=== PATIENT | female | born 1970 | race Caucasian/White ===

== ENCOUNTER 2020-10-04 17:22 | Emergency (ER) | payer OTHER ==
[~2020-10-04] VITALS: Ht 167.6 cm; Wt 112.5 kg
[2020-10-04 18:13] LABS: BASOPHILS # (AUTO) 0.1 (0.0-0.1); BASOPHILS % 0.5 % (0.0-1.0); EOSINOPHILS # (AUTO) 0.2 (0.0-0.4); EOSINOPHILS % 1.5 % (0.0-6.0); HEMATOCRIT 41.7 % (34.2-44.1); HEMOGLOBIN 13.3 g/dL (12.0-16.0); LYMPHOCYTES # (AUTO) 2.6 (1.0-3.2); LYMPHOCYTES % 22.7 % (18.0-39.1); MEAN CORPUSCULAR HGB CONC 31.9 g/dL (31-35); MEAN CORPUSCULAR VOLUME 81.4 fL (81-99); MONOCYTES # (AUTO) 0.7 (0.2-0.8); MONOCYTES % 6.3 % (4.4-11.3); NEUTROPHILS # (AUTO) 7.9 (2.1-6.9); NEUTROPHILS % 68.3 % (38.7-80.0); PLATELET COUNT 430 x10e3/uL (140-360); RED BLOOD COUNT 5.12 x10e6/uL (3.6-5.1); RED CELL DISTRIBUTION WIDTH 13.9 % (11.7-14.4)
[2020-10-04 18:34] LABS: ALANINE AMINOTRANSFERASE 23 IU/L (0-55); ALBUMIN 3.9 g/dL (3.5-5.0); ALBUMIN/GLOBULIN RATIO 0.9 (0.8-2.0); ALKALINE PHOSPHATASE 91 IU/L (40-150); ANION GAP 15.4 mmol/L (8-16); BLOOD UREA NITROGEN 11 mg/dL (7-26); BUN/CREATININE RATIO 11 (6-25); CALCIUM 9.2 mg/dL (8.4-10.2); CARBON DIOXIDE 25 mmol/L (22-29); CHLORIDE 103 mmol/L (98-107); CREATINE KINASE 34 IU/L (29-168); CREATININE, SERUM 0.98 mg/dL (0.57-1.11); EST GLOMERULAR FILTRATION RATE 60 ML/MIN (60-); GLUCOSE 92 mg/dL (74-118); POTASSIUM 4.4 mmol/L (3.5-5.1); SODIUM 139 mmol/L (136-145)
--- NOTE | 2020-10-04 18:52 | Emergency Department Note ---
History of Present Illnes History of Present Illness Chief Complaint: General Medicine Complaints History of Present Illness This is a 49 year old female in from home with complaints of abnormally high blood pressure that started while she was at work today. 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 The patient reports that she was advised to go home and she decided to stay at work for a meeting. During the meeting the patient reports that she developed some discomfort in her left shoulder that moved down to her left flank area. Patient reports a history of "abnormal EKGs" but is unsure what makes them abnormal. Patient reports that she had a full cardiac workup in 2016 including stress test and echo and everything was good at that time. Patient denies chest pain at the [facility]. Patient reports a history of "low and high blood pressure" and reports that her "body had a hard time regulating her blood pressure". No acute distress noted. . Historian: Patient Arrival Mode: Car Onset (how long ago): hour(s) (4) Location: LEFT SHOUDLER Quality: DISCOMFORT Radiation: Reports non-radiation Severity: moderate Onset quality: sudden Duration (how long): hour(s) (LESS THAN 10 MINUTES) Progression: resolved Chronicity: new Relieving factors: none Exacerbating factors: none Associated symptoms: Reports other (STATES HAS HAD BLURRED VISION ALL DAY) Treatments prior to arrival: none Past Medical/Family History Physician Review I have reviewed the patient's past medical and family history. Any updates have been documented here. Past Medical History Recent Fever: No Clinical Suspicion of Infectio: No New/Unexplained Change in Ment: No Past Medical History: None Other Medical History: Covid 02/2020 Other Surgery: left knee ligament repair Social History Smoking Cessation: Never Smoker Alcohol Use: Occasional Any Illegal Drug Use: No Family History Family history of heart diseas: No Other Any Pre-Existing Lines (PICC,: No Review of Systems Review of Systems Constitutional: Reports no symptoms EENTM: Reports no symptoms Cardiovascular: Reports as per HPI Respiratory: Reports no symptoms Gastrointestinal: Reports no symptoms Genitourinary: Reports no symptoms Musculoskeletal: Reports no symptoms Integumentary: Reports no symptoms Neurological: Reports as per HPI Psychological: Reports no symptoms Endocrine: Reports no symptoms Hematological/Lymphatic: Reports no symptoms Physical Exam Related Data Allergies: Coded Allergies: cefuroxime (Verified Allergy, Intermediate, rash, 10/04/20) lisinopril (Verified Allergy, Intermediate, redness to skin and cough, 10/04/20) strawberry (Verified Allergy, Intermediate, swelling, 10/04/20) Triage Vital Signs Vital Signs Date Time Temp Pulse Resp B/P (MAP) Pulse Ox O2 Delivery O2 Flow Rate FiO2 10/04/20 17:35 97.0 90 18 156/100 100 Room Air Vital signs reviewed: Yes Physical Exam CONSTITUTIONAL Constitutional: Present well-developed, Present well-nourished; Absent distressed HENT HENT: Present normocephalic, Present atraumatic, Present oropharynx clear/rosalio st, Present nose normal HENT L/R: Present left ext ear normal, Present right ext ear normal EYES Eyes: Reports PERRL, Reports conjunctivae normal NECK Neck: Present ROM normal PULMONARY Pulmonary: Present effort normal, Present breath sounds normal CARDIOVASCULAR Cardiovascular: Present regular rhythm, Present heart sounds normal, Present capillary refill normal, Present normal rate GASTROINTESTINAL Abdominal: Present soft, Present nontender, Present bowel sounds normal GENITOURINARY Genitourinary: Present exam deferred SKIN Skin: Present warm, Present dry MUSCULOSKELETAL Musculoskeletal: Present ROM normal NEUROLOGICAL Neurological: Present alert, Present oriented x 3, Present no gross motor or sensory deficits PSYCHOLOGICAL Psychological: Present mood/affect normal, Present judgement normal Results Laboratory Result Diagram: 10/04/20 17510/04/204 Laboratory Laboratory Tests Test 10/04/20 17:54 White Blood Count 11.51 x10e3/uL (4.8-10.8) Red Blood Count 5.12 x10e6/uL (3.6-5.1) Hemoglobin 13.3 g/dL (12.0-16.0) Hematocrit 41.7 % (34.2-44.1) Mean Corpuscular Volume 81.4 fL (81-99) Mean Corpuscular Hemoglobin 26.0 pg (28-32) Mean Corpuscular Hemoglobin Concent 31.9 g/dL (31-35) Red Cell Distribution Width 13.9 % (11.7-14.4) Platelet Count 430 x10e3/uL (140-360) Neutrophils (%) (Auto) 68.3 % (38.7-80.0) Lymphocytes (%) (Auto) 22.7 % (18.0-39.1) Monocytes (%) (Auto) 6.3 % (4.4-11.3) Eosinophils (%) (Auto) 1.5 % (0.0-6.0) Basophils (%) (Auto) 0.5 % (0.0-1.0) Neutrophils # (Auto) 7.9 (2.1-6.9) Lymphocytes # (Auto) 2.6 (1.0-3.2) Monocytes # (Auto) 0.7 (0.2-0.8) Eosinophils # (Auto) 0.2 (0.0-0.4) Basophils # (Auto) 0.1 (0.0-0.1) Absolute Immature Granulocyte (auto 0.08 x10e3/uL (0-0.1) Sodium Level 139 mmol/L (136-145) Potassium Level 4.4 mmol/L (3.5-5.1) Chloride Level 103 mmol/L (98-107) Carbon Dioxide Level 25 mmol/L (22-29) Anion Gap 15.4 mmol/L (8-16) Blood Urea Nitrogen 11 mg/dL (7-26) Creatinine 0.98 mg/dL (0.57-1.11) Estimat Glomerular Filtration Rate 60 ML/MIN (60-) BUN/Creatinine Ratio 11 (6-25) Glucose Level 92 mg/dL (74-118) Calcium Level 9.2 mg/dL (8.4-10.2) Total Bilirubin 0.3 mg/dL (0.2-1.2) Aspartate Amino Transf (AST/SGOT) 21 IU/L (5-34) Alanine Aminotransferase (ALT/SGPT) 23 IU/L (0-55) Alkaline Phosphatase 91 IU/L (40-150) Creatine Kinase 34 IU/L (29-168) Creatine Kinase MB 0.70 ng/mL (0-5.0) Troponin I < 0.001 ng/mL (0-0.300) Total Protein 8.1 g/dL (6.5-8.1) Albumin 3.9 g/dL (3.5-5.0) Globulin 4.2 g/dL (2.3-3.5) Albumin/Globulin Ratio 0.9 (0.8-2.0) Lab results reviewed: Yes Imaging Imaging results reviewed: Yes Impressions Procedure: [id number] CT/CT CHEST W Exam Date: Exam Time: REPORT STATUS: Signed EXAM: CT Chest WITH contrast 10/04/2020 7:14 PM INDICATION: ^PE PROTOCOL ^Y COMPARISON: None TECHNIQUE: Chest was scanned utilizing a multidetector helical scanner from the lung apex through the level of the adrenal glands with administration of IV contrast. Coronal and sagittal reformations were obtained. Routine protocol was performed. IV CONTRAST: 100 mL of Omnipaque 300 COMPLICATIONS: None RADIATION DOSE: Total DLP: 582 mGy*cm Estimated effective dose: (DLP x 0.014 x size factor) mSv CTDIvol has been reviewed. It is below the limits set by the Radiation Protocol Committee (RPC). Dose modulation, iterative reconstruction, and/or weight based adjustment of the mA/kV was utilized to reduce the radiation dose to as low as reasonably achievable. FINDINGS: VASCULAR: There are no filling defects within the pulmonary arteries to the segmental level. The main pulmonary artery is dilated measuring 3.2 cm. The ascending and descending aorta have normal enhancement and caliber measuring 3.3 cm and 2.3 cm, respectively. LINES/ TUBES: None. LUNGS AND AIRWAYS: The lungs are unremarkable. Airways are normal. PLEURA: The pleural spaces are clear. HEART AND MEDIASTINUM: The thyroid gland is normal. No mediastinal, hilar or axillary lymphadenopathy. The heart is normal in size. There is no pericardial effusion. UPPER ABDOMEN: Unremarkable. BONES: The visualized bony thorax is within normal limits. SOFT TISSUES: Unremarkable. IMPRESSION: 1. No evidence of pulmonary embolism. 2. No acute intrathoracic abnormality identified. Signed by: Errol Bella MD on 10/04/2020 8:12 PM Dictated By: ERROL BELLA MD 11 Transcribed By: JANE on 10/04/202011 COPY TO: CLAUDIA ACOSTA MD~ Procedure: [id number] CT/CT BRAIN WO Exam Date: Exam Time: REPORT STATUS: Signed Exam: Head CT without contrast History: Headache, blurry vision Comparison studies: None Technique: Axial images were obtained from the skull base to the vertex. Coronal and sagittal images reconstructed from the axial data. Dose modulation, iterative reconstruction, and/or weight based adjustment of the mA/kV was utilized to reduce the radiation dose to as low as reasonably achievable. Radiation dose: Total DLP: 921 mGy*cm. Estimated effective dose: DLP x 0.015 Intravenous contrast: None Findings: Scalp: No abnormalities. Bones: No fractures, blastic or lytic lesions. Brain sulci: Appropriate for age. Ventricles: Normal in size and configuration. No hydrocephalus. Extra-axial spaces: No masses, no fluid collection. Parenchyma: No abnormal densities. No masses, acute hemorrhage, acute or chronic vascular insults. Sellar/suprasellar region: No abnormalities. Craniocervical junction: Patent foramen magnum. No Chiari one malformation. Included paranasal sinuses: Clear. Middle ear cavities and mastoids: Clear. IMPRESSION: No acute intracranial abnormality. Signed by: Dr. Kacie Luther M.D. on 10/04/2020 7:15 PM Dictated By: KACIE LUTHER MD 14 Transcribed By: JANE on 10/04/201914 COPY TO: CLAUDIA ACOSTA MD~ Procedures 12 Lead ECG Interpretation ECG Interpretation : ECG: ECG [address] Sql Developer: Interpreted by ED physician Date: Oct 04, 2020 Time: 18:01 Rhythm: sinus rhythm Rate: normal BPM: 90 QRS axis: normal ST segments normal: Yes T waves normal: Yes Q waves: V1 Clinical Impression: abnormal ECG Assessment & Plan Medical Decision Making MDM PT WITH ELEVATED BP AND SHORT EPISODE OF LEFT SHOULDER DISCOMFORT CBC, CMP, EKG, CXR, CT BRAIN ,CARDIAC ENZYMES, D-DIMER ORDERED TO EVAL FOR MYOCARDIAL INFARCTION, ELECTROLYTE ABNORMALITY,PNUEMONIA, CVA, INTRACRANIAL BLEED PULMONAR EMBOLISM Assessment & Plan Final Impression: (1) Labile blood pressure Depart Disposition: HOME, SELF-CARE Last Vital Signs Date Time Temp Pulse Resp B/P (MAP) Pulse Ox O2 Delivery O2 Flow Rate FiO2 10/04/20 17:35 97.0 90 18 156/100 100 Room Air CLAUDIA ACOSTA MD Oct 04, 2020 18:52
--- NOTE | 2020-10-04 19:19 | Diagnostic Imaging Report ---
Exam: Head CT without contrast History: Headache, blurry vision Comparison studies: None Technique: Axial images were obtained from the skull base to the vertex. Coronal and sagittal images reconstructed from the axial data. Dose modulation, iterative reconstruction, and/or weight based adjustment of the mA/kV was utilized to reduce the radiation dose to as low as reasonably achievable. Radiation dose: Total DLP: 921 mGy*cm. Estimated effective dose: DLP x 0.015 Intravenous contrast: None Findings: Scalp: No abnormalities. Bones: No fractures, blastic or lytic lesions. Brain sulci: Appropriate for age. Ventricles: Normal in size and configuration. No hydrocephalus. Extra-axial spaces: No masses, no fluid collection. Parenchyma: No abnormal densities. No masses, acute hemorrhage, acute or chronic vascular insults. Sellar/suprasellar region: No abnormalities. Craniocervical junction: Patent foramen magnum. No Chiari one malformation. Included paranasal sinuses: Clear. Middle ear cavities and mastoids: Clear. IMPRESSION: No acute intracranial abnormality. Signed by: Dr. Gamaliel Luther M.D. on 10/04/2020 7:15 PM
--- NOTE | 2020-10-04 20:03 | Diagnostic Imaging Report ---
EXAMINATION: CHEST SINGLE (PORTABLE) INDICATION: ^chest pain ^[id number] ^1830 ^Y COMPARISON: None FINDINGS: TUBES and LINES: None. LUNGS: Normal lung volumes. Lungs are clear. No consolidations. PLEURA: No pleural effusion or pneumothorax. HEART AND MEDIASTINUM: The cardiomediastinal silhouette is unremarkable. BONES AND SOFT TISSUES: No acute osseous lesion. Soft tissues are unremarkable. UPPER ABDOMEN: No free air under the diaphragm. IMPRESSION: No acute thoracic radiographic abnormality. Signed by: Rema Rojo MD on 10/04/2020 8:00 PM
--- NOTE | 2020-10-04 20:16 | Diagnostic Imaging Report ---
EXAM: CT Chest WITH contrast 10/04/2020 7:14 PM INDICATION: ^PE PROTOCOL ^Y COMPARISON: None TECHNIQUE: Chest was scanned utilizing a multidetector helical scanner from the lung apex through the level of the adrenal glands with administration of IV contrast. Coronal and sagittal reformations were obtained. Routine protocol was performed. IV CONTRAST: 100 mL of Omnipaque 300 COMPLICATIONS: None RADIATION DOSE: Total DLP: 582 mGy*cm Estimated effective dose: (DLP x 0.014 x size factor) mSv CTDIvol has been reviewed. It is below the limits set by the Radiation Protocol Committee (RPC). Dose modulation, iterative reconstruction, and/or weight based adjustment of the mA/kV was utilized to reduce the radiation dose to as low as reasonably achievable. FINDINGS: VASCULAR: There are no filling defects within the pulmonary arteries to the segmental level. The main pulmonary artery is dilated measuring 3.2 cm. The ascending and descending aorta have normal enhancement and caliber measuring 3.3 cm and 2.3 cm, respectively. LINES/ TUBES: None. LUNGS AND AIRWAYS: The lungs are unremarkable. Airways are normal. PLEURA: The pleural spaces are clear. HEART AND MEDIASTINUM: The thyroid gland is normal. No mediastinal, hilar or axillary lymphadenopathy. The heart is normal in size. There is no pericardial effusion. UPPER ABDOMEN: Unremarkable. BONES: The visualized bony thorax is within normal limits. SOFT TISSUES: Unremarkable. IMPRESSION: 1. No evidence of pulmonary embolism. 2. No acute intrathoracic abnormality identified. Signed by: Rema Rojo MD on 10/04/2020 8:12 PM
[2020-10-04] MEDS ORDERED: SODIUM CHLORIDE 0.9% 50ML 50 ML ONE (20:37)
[2020-10-04] MEDS ORDERED: IOPAMIDOL 370 MG/ML 200 ML INFUS..BTL INJ ONE (20:37)
[2020-10-04 20:47] VITALS: BP 129/84
== END 2020-10-04 20:49 | disposition home or self-care (01) ==
LOC: ER 17:50
DX: R09.89 Other specified symptoms and signs involving the circulatory and respiratory systems (principal); M25.512 Pain in left shoulder; R94.31 Abnormal electrocardiogram [ECG] [EKG]
CPT/HCPCS: 36415; 70450; 71045; 71260; 80053; 82550; 82553; 84484; 85025; 85379; 93005; 99284; Q9967